=== PATIENT | male | born 1960 | race Native Hawaiian/Other Pacific Islander ===

== ENCOUNTER 2020-04-15 08:16 | Outpatient (CLI) | payer OTHER ==
[~2020-04-15] VITALS: Ht 182.9 cm; Wt 136.5 kg
== END 2020-04-15 19:01 | disposition home or self-care (01) ==
LOC: NM 08:16
PROVIDERS: ATTEND Internal Medicine
DX: R53.83 Other fatigue (principal); I10 Essential (primary) hypertension; E78.5 Hyperlipidemia, unspecified; R60.0 Localized edema
CPT/HCPCS: A9500; J2785